=== PATIENT | female | born 1975 | race Caucasian/White ===

== ENCOUNTER → 2021-03-03 08:08 | Outpatient (CLI) | payer OTHER, SELFPAY ==
[2017-02-20 08:27] VITALS: BMI 34.3
--- NOTE | 2021-03-03 08:11 | BI_ITS ---
MAMMOGRAPHY - BILATERAL SCREENING REASON FOR EXAM: Female, 46 years old. Routine annual screening examination. PERTINENT HISTORY: Non-contributory. TECHNIQUE: Digital bilateral breast kiran (3D mammographic acquisition) in the CC and MLO projections. 2-D mediolateral oblique (MLO) and craniocaudad (CC) views of both breasts were obtained. CAD: Full Field Digital Mammography with Computer Added Detection was performed. COMPARISON: Comparison is made with prior outside examination dated 12/07/2016. FINDINGS: Breast Composition: There are scattered areas of fibroglandular density. There are no dominant masses or suspicious calcifications. Stable benign-appearing small bilateral axillary lymph nodes. No other significant abnormalities are identified. There has been no significant change since the prior study. BI/SCRN MAMM (CAD)W/KIRAN BILAT IMPRESSION: Stable bilateral screening mammogram. Yearly follow-up mammogram recommended. (A) ASSESSMENT CATEGORY: BIRADS Category 2: Benign. A letter regarding these results will be sent to the patient by the facility within 30 days. Approximately 10% of breast cancers are not detected by mammography. A normal mammogram should not delay biopsy of a clinically suspicious abnormality. [id number] Electronically Signed: Andrew Navarro MD at 12:19 EDT , Service support ,
== END ==
PROVIDERS: PCP Family Medicine; Referring Provider Nurse Practitioner Women's Health; Visit Provider Nurse Practitioner Women's Health
DX: Z12.31 Encounter for screening mammogram for malignant neoplasm of breast (principal)
CPT/HCPCS: 77063; 77067

== ENCOUNTER → 2021-10-03 | Outpatient (CLI) | payer OTHER, SELFPAY ==
[2021-10-07 13:13] LABS: HPV APTIMA, High Risk Negative (Negative)
== END | disposition home or self-care (01) ==
LOC: LABSPEC 16:12
PROVIDERS: Referring Provider Obstetrics & Gynecology; Visit Provider Obstetrics & Gynecology
DX: Z12.4 Encounter for screening for malignant neoplasm of cervix (principal)
CPT/HCPCS: 87624; 88175; G0145

== ENCOUNTER → 2022-03-10 | Outpatient (CLI) | payer OTHER, SELFPAY ==
--- NOTE | 2022-03-10 12:39 | BI_ITS ---
MAMMOGRAPHY - BILATERAL SCREENING 3-D TOMOSYNTHESIS REASON FOR EXAM: Female, 47 years old. screening -- due after 03/03/2022 PERTINENT HISTORY: No significant family history. TECHNIQUE: 2-D mammograms and 3-D Tomosynthesis of the breast (s) were performed. CAD was performed. COMPARISON: 03/03/2021 FINDINGS: The breast composition is heterogeneously dense that can obscure small breast masses. Scattered benign calcifications are seen. No dense spiculated masses or suspicious microcalcifications are identified. No architectural distortion is identified. There is no skin thickening or retraction. There has been no significant change since the prior study. BI/SCRN MAMM (CAD)W/KIRAN BILAT IMPRESSION: No mammographic signs of malignancy. Routine yearly mammograms recommended. ASSESSMENT CATEGORY: BIRADS Category 1: Negative. A letter regarding these results will be sent to the patient by the facility within 30 days. FOLLOW UP RECOMMENDATION: Yearly follow up mammogram recommended. (A) Approximately 10% of breast cancers are not detected by mammography. A normal mammogram should not delay biopsy of a clinically suspicious abnormality. Electronically Signed: Juan C Sanchez MD at 13:51 EDT ,
== END | disposition home or self-care (01) ==
LOC: OPBI 12:38
PROVIDERS: Referring Provider Obstetrics & Gynecology; Visit Provider Obstetrics & Gynecology
DX: Z12.31 Encounter for screening mammogram for malignant neoplasm of breast (principal)
CPT/HCPCS: 77063; 77067

== ENCOUNTER 2022-03-21 10:44 | Emergency (ER) | payer OTHER, SELFPAY ==
[2022-03-21 10:45] VITALS: BP 156/78; PULSE 90; RESP 20; TEMP 36.6; O2SAT 98; BMI 36.6
--- NOTE | 2022-03-21 10:58 | ED.VIS.BACK ---
HPI History of Present Illness Chief Complaint: Back Informant: patient Narrative Narrative: 47-year-old female presenting to the emergency department with back pain. She states that about a week ago the morning after she was moving furniture she woke with low back pain. She has been taking Aleve and ibuprofen. She states that Sunday was severe. She was unable to ride in a car or I would have been in here earlier. Nothing has changed today from yesterday or the day before in terms of her symptomology. She notes tightness in the low back radiating into the right buttock with occasional paresthesias into the leg. She denies any bowel or bladder dysfunction. No foot drop or muscular weakness. No falls. She has not seen a chiropractor or primary care for this. [facility] Medical History Anxiety with depression Crohn disease Pseudotumor Home Medications levonorgestrel [Mirena] 1 ea IY 02/20/17 [History Last Taken Unknown] bupropion HCl 300 mg 24 hr tablet, extended release 300 mg PO QAM #30 tab 10/03/21 [Rx Last Taken Unknown] diazepam 5 mg PO Q8 PRN #15 tab 03/21/22 [Rx Last Taken Unknown] ondansetron 4 mg PO Q6H PRN PRN #15 tab 03/21/22 [Rx Last Taken Unknown] oxycodone-acetaminophen 1 tab PO Q6H PRN PRN 5 Days #20 tablet 03/21/22 [Rx Last Taken Unknown] Allergy/AdvReac Type Severity Reaction Status Date / Time Penicillins [PCN] Allergy Unknown Verified 03/21/22 10:47 Family History (Updated 10/03/21 @ 14:33 by Mariah Smith) Father Heart disease Surgical History History of appendectomy S/P tonsillectomy Social History Smoking Status: Never smoker alcohol intake: current details: socially substance use type: does not use caffeine: Yes seatbelt use: always additional social history: [employer]- [employer] ROS ROS ED Constitutional Constitutional ED: Denies chills, fever(s) or weight loss Eyes Eyes: Denies change in vision or diplopia ENT ENT ED: Denies ear pain, rhinorrhea or sore throat Cardiovascular Cardiovascular: Denies chest pain, orthopnea, palpitations or racing heartbeat Respiratory/Chest Respiratory/Chest: Denies cough, dyspnea or orthopnea Gastrointestinal Gastrointestinal: Denies abdominal pain, diarrhea, nausea or vomiting Genitourinary Genitourinary ED: Denies dysuria, hematuria or urinary frequency Musculoskeletal Musculoskeletal: Reports back pain; Denies arthralgias or myalgias Integumentary Denies abscess or rash Neurologic Neurologic: Reports paresthesias; Denies headache(s) or weakness Psychiatric Psychiatric: Denies anxiety, depression, suicidal ideation or suicidal thoughts Endocrine Endocrinology: Denies polydipsia, polyphagia or polyuria Allergic/Immunologic Allergic/Immunologic ED: Denies mouth swelling, tongue swelling or urticaria EXAM Physical Exam Const Vital Signs: 03/21/22 10:45 Temperature 98 F Temperature Source Temporal Pulse Rate 90 Respiratory Rate 20 H Blood Pressure 156/78 H Blood Pressure Mean 104 Pulse Ox 98 Oxygen Delivery Method Room Air Positive well nourished, well developed and obese General Appearance ED: well developed Nutritional Appearance: obese HEENT Reports normocephalic, head/scalp atraumatic, TM's clear and moist mucous membranes Negative for trauma Tympanic Membrane ED: Yes TM's clear Eyes PERRL and EOMs intact bilaterally Neck no lymphadenopathy, supple and no JVD Resp normal respiratory effort and clear to auscultation bilaterally Cardio regular rate, regular rhythm and no murmurs GI normal to inspection, nondistended, normoactive bowel sounds and non-tender Palpation: soft Back/Spine no CVA tenderness and normal ROM Back/Spine Narrative: Limited painful range of motion. Antalgic gait. Patient reports tenderness palpation over the lumbar paraspinal musculature. Extremity normal to inspection General Extremety ED: Negative for edema General Extremity: Negative for edema Neuro oriented x3 and CN's II-XII intact bilaterally Sensorium / Orientation: alert Motor Exam: strength 5/5 throughout Deep Tendon Reflexes: Rt Patellar (L4): 2+, Lt Patellar (L4): 2+, Rt Ankle (S1): 2+ and Lt Ankle (S1): 2+ Deep Tendon Reflexes Back: Rt Patellar (L4): 2+, Lt Patellar (L4): 2+, Rt Ankle (S1): 2+ and Lt Ankle (S1): 2+ Psych mental status grossly normal Mood & Affect: Negative for depressed or tearful Skin no rashes or lesions noted and no wounds MDM MDM MDM Narrative Medical decision making narrative: Patient received intramuscular Toradol. She also received oral diazepam for muscle relaxant. I think the patient has a muscular strain of the low back. I do not think this represents abscess or emergent spinal condition. She has no acute neurologic deficits. Herniated disc is still a possibility. Patient's pain was not improved to her satisfaction. Additional oxycodone was given as she has itching with morphine which was originally ordered. She developed nausea but does not wish any nausea medication. Repeat exam shows that she is having improved pain and her nausea is resolved. If not improving she will need to follow-up patient will be discharged home with pain medication and diazepam. Following up with primary care Discharge Plan Triage Chief Complaint: Back ED Provider: Axel Oneill Dx/Rx/DC Orders Clinical Impression: Acute lumbar myofascial strain Instructions: ED Back Sprain/Strain Prescriptions: New oxycodone-acetaminophen [oxycodone-acetaminophen] 1 TABLET tablet 1 tab PO Q6H PRN PRN (Reason: pain) 5 Days Qty: 20 RF: 0 ondansetron [ondansetron] 4 MG tablet 4 mg PO Q6H PRN PRN (Reason: Nausea) Qty: 15 RF: 0 diazepam [diazepam] 5 MG tablet 5 mg PO Q8 PRN (Reason: Muscle Spasm) Qty: 15 RF: 0 No Action bupropion HCl [Wellbutrin XL] 300 mg tablet extended release 24 hr 300 mg PO QAM Qty: 30 RF: 12 levonorgestrel [Mirena] 1 EACH intrauterine device 1 ea IY RF: 0 Primary Care Provider: Care Physician,No Primary Referrals: Daren Gaspar MD [STAFF PHYSICIAN] - As Needed Dax Chopra DO [STAFF PHYSICIAN] - As soon as possible Care Physician,No Primary [Primary Care Provider] - Disposition Disposition: Home, Self Care
[2022-03-21] MEDS: diazePAM 5 MG Tablet PO (11:16)
[2022-03-21] MEDS: Ketorolac 60 MG/2 ML Vial IM (11:17)
--- NOTE | 2022-03-21 11:22 | CM.ED ---
SW Note Referral Source: Case Find Referral Reason: No PCP SW met with patient as per tracker patient has no PCP. SW provided patient with [facility] Healthcare Directory and encouraged patient to select a PCP. No further issues or concerns voiced. Lanette CROWLEY
[2022-03-21] MEDS: oxyCODONE 5 MG Tablet 10 MG PO (12:57)
--- NOTE | 2022-03-21 13:00 | NURSING ---
this RN medicates pt with oxyir at this time. pt pleasant with this RN and thankful.pt denies further needs at this time. will continue to monitor pt.
--- NOTE | 2022-03-21 14:21 | ED.RN ---
PT REFUSES MEDICATION FOR NAUSEA, STATES REMAINS IN SEVERE PAIN. DR RODRÍGUEZ
--- NOTE | 2022-03-21 14:31 | ED.RN ---
DR. PERRY IN ROOM TO TALK WITH PT
[2022-03-21 14:53] VITALS: PULSE 82; RESP 16; O2SAT 97
--- NOTE | 2022-03-21 14:54 | ED.RN ---
Pt given written and verbal dc instructions. pt refused wheelchair and stated that she wanted to try to walk out. Pt was assisted to the door and pt stated that she was good from there.
== END 2022-03-21 14:55 | disposition home or self-care (01) ==
LOC: ED 11:12
PROVIDERS: Emergency Provider Emergency Medicine; Visit Provider Emergency Medicine
DX: S39.012A Strain of muscle, fascia and tendon of lower back, initial encounter (principal); X50.0XXA Overexertion from strenuous movement or load, initial encounter; Y93.89 Activity, other specified; Y99.8 Other external cause status; E66.9 Obesity, unspecified; Z68.36 Body mass index [BMI] 36.0-36.9, adult
CPT/HCPCS: 96372; 99283